=== PATIENT | female | born 1950 | race Caucasian/White ===

== ENCOUNTER 2017-10-28 01:16 | Inpatient (IN) | payer MEDICARE, OTHER ==
[~2017-10-28] VITALS: Ht 165.1 cm; Wt 68.0 kg
[~2017-10-28 01:16] MED LIST: AMLO-512 PO; CLON.2 PO; ESCI5TAB PO; RISP.5 PO
[2017-10-28 02:18] LABS: BASOPHILS % (AUTO) 0.2 % (0.0-2.0); EOSINOPHILS % (AUTO) 2.5 % (1.0-6.0); HEMATOCRIT 44.4 % (36-46); HEMOGLOBIN 15.3 g/dL (12.0-16.0); LYMPHOCYTES # (AUTO) 1.7 K/uL (1.0-4.8); LYMPHOCYTES % (AUTO) 32.2 % (22.0-44.0); MEAN CORPUSCULAR HEMOGLOBIN 31.1 pg (26.0-34.0); MEAN CORPUSCULAR HGB CONC 34.4 G/dL (31.0-37.0); MEAN CORPUSCULAR VOLUME 90 fL (80-100); MONOCYTES # (AUTO) 0.4 K/uL (0.1-1.0); MONOCYTES % (AUTO) 8.2 % (2.0-9.0); NEUTROPHILS # (AUTO) 3.1 K/uL (1.8-7.7); NEUTROPHILS % (AUTO) 56.9 % (40.0-70.0); RED BLOOD CELL COUNT(AUTO) 4.92 MIL/uL (4.00-5.20); RED CELL DISTRIBUTION WIDTH 12.6 % (11.5-14.5)
[2017-10-28 02:23] LABS: ANION GAP 9 mmol/L (8-16); CALCIUM, TOTAL 8.7 mg/dL (8.8-10.5); CARBON DIOXIDE 25 mmol/L (22-29); CHLORIDE 105 mmol/L (98-107); CREATININE 0.51 mg/dL (0.60-1.30); GLOMERULAR FILTR. RATE CALC > 60 mL/min (>60); GLUCOSE,RANDOM 110 mg/dL (70-110); POTASSIUM 3.6 mmol/L (3.5-5.1); SODIUM SERUM 139 mmol/L (136-145); UREA NITROGEN, BLOOD 17 mg/dL (7-18)
[2017-10-28 02:30] LABS: ALANINE AMINOTRANSFERASE 36 U/L (12-78); ALBUMIN 3.4 g/dL (3.4-5.0); ALKALINE PHOSPHATASE 169 U/L (46-116); ASPARTATE AMINOTRANSFERASE 48 U/L (15-37); BILIRUBIN,TOTAL 0.7 mg/dL (0.1-1.0); TOTAL PROTEIN, SERUM 6.9 g/dL (6.4-8.2)
[2017-10-28 02:34] LABS: AMPHET/METH SCREEN,URINE NEGATIVE (NEGATIVE); BARBITURATE SCREEN, URINE NEGATIVE (NEGATIVE); BENZODIAZEPINES SCREEN,URINE NEGATIVE (NEGATIVE); CANNABINOID SCREEN,URINE NEGATIVE (NEGATIVE); COCAINE SCREEN,URINE NEGATIVE (NEGATIVE); METHADONE SCREEN, URINE NEGATIVE (NEGATIVE); OPIATE SCREEN,URINE NEGATIVE (NEGATIVE); PHENCYCLIDINE SCREEN,URINE NEGATIVE (NEGATIVE)
[2017-10-28 02:45] LABS: PLATELET COUNT (AUTO) 66 K/uL (150-450)
[2017-10-28] MEDS ORDERED: ZOLPIDEM TARTRATE 10 MG TABLET PO PRN (02:45)
[2017-10-28] MEDS ORDERED: HALOPERIDOL 5 MG TABLET PO PRN (02:45)
[2017-10-28 04:38] VITALS: BP 147/104
[2017-10-28] MEDS ORDERED: INFLUENZA VIRUS VACCINE QVS 2017-18 (3YR+)/PF 60 MCG/0.5 ML SYRINGE IM ONE (04:45)
[2017-10-28 05:02] LABS: APPEARANCE,URINE CLEAR (CLEAR); BILIRUBIN,URINE NEGATIVE (NEGATIVE); GLUCOSE, URINE (UA) NEGATIVE (NEGATIVE); KETONES,URINE NEGATIVE (NEGATIVE); LEUKOCYTE ESTERASE ,URINE TRACE (NEGATIVE); NITRATE,URINE NEGATIVE (NEGATIVE); OCCULT BLOOD,URINE NEGATIVE (NEGATIVE); PH,URINE 6.5 (5.0-8.0); PROTEIN,URINE NEGATIVE (NEGATIVE); UROBILINOGEN,URINE 0.2 mg/dL (<=1.0)
[2017-10-28 05:29] LABS: BACTERIA,URINE Few /HPF (None Seen); RBC,URINE 0-2 /HPF (0-2); SQUAMOUS EPITHELIAL CELL,UR Few /LPF (None Seen)
[2017-10-28 09:27] VITALS: BP 170/110
[2017-10-28] MEDS: AmLODIPine BESYLATE 10 MG TABLET PO SCH (09:45)
[2017-10-28] MEDS: NICOTINE 7 MG/24 HOUR PATCH TD SCH (09:45)
[2017-10-28] MEDS ORDERED: IBUPROFEN 400 MG TABLET PO PRN (10:00)
[2017-10-28] MEDS: CloNIDine HCL 0.2 MG TABLET PO SCH ×2 (10:06→16:22)
[2017-10-28 10:59] VITALS: BP 129/82
[2017-10-28] MEDS: RisperiDONE 0.5 MG TABLET PO SCH ×2 (10:59→21:25)
[2017-10-28] MEDS: ESCITALOPRAM OXALATE 10 MG TABLET PO SCH (11:00)
[2017-10-28 11:59] VITALS: BP 131/86
[2017-10-28] MEDS ORDERED: MAG HYDROX/AL HYDROX/SIMETH 30 ML SUSP UDCUP PO PRN (16:00)
[2017-10-28] MEDS ORDERED: ALBUTEROL SULFATE HFA 90 MCG/PUFF 8 GM INHALER IH PRN (16:00)
[2017-10-28 16:22] VITALS: BP 110/70
[2017-10-28] MEDS: IBUPROFEN 400 MG TABLET PO PRN (16:22)
[2017-10-28 16:29] VITALS: BP 113/70
[2017-10-28] MEDS: LORazepam 1 MG TABLET PO PRN (17:57)
[2017-10-28] MEDS: ACETAMINOPHEN 325 MG TABLET PO PRN (17:57)
[2017-10-29] VITALS (8 sets, daily range): BP systolic 102–133; BP diastolic 62–87
[2017-10-29] MEDS: IBUPROFEN 400 MG TABLET PO PRN ×2 (03:40→12:37)
[2017-10-29] MEDS: RisperiDONE 0.5 MG TABLET PO SCH ×2 (08:43→20:14)
[2017-10-29] MEDS: LORazepam 1 MG TABLET PO PRN (08:43)
[2017-10-29] MEDS: NICOTINE 7 MG/24 HOUR PATCH TD SCH (08:43)
[2017-10-29] MEDS: ESCITALOPRAM OXALATE 10 MG TABLET PO SCH (08:43)
[2017-10-29] MEDS: ACETAMINOPHEN 325 MG TABLET PO PRN (08:43)
[2017-10-29] MEDS: AmLODIPine BESYLATE 10 MG TABLET PO SCH (08:43)
[2017-10-29] MEDS: CloNIDine HCL 0.2 MG TABLET PO SCH ×2 (08:43→16:06)
[2017-10-29 10:33] LABS: HEMOGLOBIN A1C 5.3 % (4.5-6.2)
[2017-10-29 10:42] LABS: THYROID STIMULATING HORMONE 1.65 uIU/mL (0.36-3.74)
[2017-10-29] MEDS: SUMAtriptan SUCCINATE 25 MG TABLET PO PRN (17:23)
[2017-10-30 02:48] VITALS: BP 147/91
[2017-10-30] MEDS: LORazepam 1 MG TABLET PO PRN ×2 (04:53→11:34)
[2017-10-30] MEDS: SUMAtriptan SUCCINATE 25 MG TABLET PO PRN ×2 (04:54→11:34)
[2017-10-30] MEDS: AmLODIPine BESYLATE 10 MG TABLET PO SCH (08:33)
[2017-10-30] MEDS: ESCITALOPRAM OXALATE 10 MG TABLET PO SCH (08:34)
[2017-10-30] MEDS: CloNIDine HCL 0.2 MG TABLET PO SCH (08:34)
[2017-10-30] MEDS: RisperiDONE 0.5 MG TABLET PO SCH (08:34)
[2017-10-30] MEDS: NICOTINE 7 MG/24 HOUR PATCH TD SCH (08:35)
[2017-10-30 08:58] VITALS: BP 126/93
[2017-10-30] MEDS ORDERED: ESCI10TA PO (10:49)
[2017-10-30] MEDS ORDERED: RISP.5 PO (10:49)
[2017-10-30] MEDS ORDERED: CLON.2 PO (10:49)
[2017-10-30] MEDS ORDERED: AMLO-512 PO (10:49)
[2017-10-30 11:42] VITALS: BP 106/70
[2017-10-30 12:36] VITALS: BP 100/69
== END 2017-10-30 14:20 | disposition home or self-care (01) | DRG 885 ==
LOC: EMS 01:17 → 3EX 03:15
DX: F33.2 Major depressive disorder, recurrent severe without psychotic features (principal); R45.851 Suicidal ideations; I11.0 Hypertensive heart disease with heart failure; I50.9 Heart failure, unspecified; F11.20 Opioid dependence, uncomplicated; J44.9 Chronic obstructive pulmonary disease, unspecified; Z91.14 Patient's other noncompliance with medication regimen; Z28.21 Immunization not carried out because of patient refusal; F17.210 Nicotine dependence, cigarettes, uncomplicated; E05.00 Thyrotoxicosis with diffuse goiter without thyrotoxic crisis or storm; F41.9 Anxiety disorder, unspecified; Z90.49 Acquired absence of other specified parts of digestive tract; G47.00 Insomnia, unspecified; Z71.51 Drug abuse counseling and surveillance of drug abuser; R74.0 Nonspecific elevation of levels of transaminase and lactic acid dehydrogenase [LDH]; Z79.899 Other long term (current) drug therapy
CPT/HCPCS: 83036; 84443; 99285; G0480

== ENCOUNTER 2017-12-10 17:38 | Emergency (ER) | payer MEDICARE, OTHER ==
[~2017-12-10] VITALS: Ht 165.1 cm; Wt 81.8 kg
[~2017-12-10 17:38] MED LIST changes: +ESCI10TA PO; -ESCI5TAB PO
[2017-12-10] MEDS ORDERED: CloNIDine HCL 0.2 MG TABLET PO ONE (20:15)
[2017-12-10 20:59] LABS: BASOPHILS % (AUTO) 0.9 % (0.0-2.0); EOSINOPHILS % (AUTO) 1.6 % (1.0-6.0); HEMATOCRIT 44.3 % (36-46); HEMOGLOBIN 15.1 g/dL (12.0-16.0); LYMPHOCYTES # (AUTO) 1.9 K/uL (1.0-4.8); LYMPHOCYTES % (AUTO) 34.2 % (22.0-44.0); MEAN CORPUSCULAR HEMOGLOBIN 30.1 pg (26.0-34.0); MEAN CORPUSCULAR HGB CONC 34.1 G/dL (31.0-37.0); MEAN CORPUSCULAR VOLUME 88 fL (80-100); MONOCYTES # (AUTO) 0.5 K/uL (0.1-1.0); MONOCYTES % (AUTO) 8.6 % (2.0-9.0); NEUTROPHILS % (AUTO) 54.7 % (40.0-70.0); PLATELET COUNT (AUTO) 114 K/uL (150-450); RED BLOOD CELL COUNT(AUTO) 5.02 MIL/uL (4.00-5.20); RED CELL DISTRIBUTION WIDTH 13.5 % (11.5-14.5)
[2017-12-10] MEDS ORDERED: KETOROLAC TROMETHAMINE 30 MG/ML VIAL IVP ONE (21:00)
[2017-12-10 21:12] LABS: PROTHROMBIN TIME 10.6 SEC (9.4-11.6)
[2017-12-10 21:26] LABS: B-TYPE NATRIURETIC PEPTIDE 63 pg/mL (0-100)
[2017-12-10 21:32] LABS: ANION GAP 9 mmol/L (8-16); CALCIUM, TOTAL 8.9 mg/dL (8.8-10.5); CARBON DIOXIDE 27 mmol/L (22-29); CHLORIDE 106 mmol/L (98-107); GLOMERULAR FILTR. RATE CALC > 60 mL/min (>60); GLUCOSE,RANDOM 93 mg/dL (70-110); POTASSIUM 4.1 mmol/L (3.5-5.1); SODIUM SERUM 142 mmol/L (136-145); UREA NITROGEN, BLOOD 22 mg/dL (7-18)
[2017-12-10 21:43] LABS: APPEARANCE,URINE CLEAR (CLEAR); BILIRUBIN,URINE NEGATIVE (NEGATIVE); GLUCOSE, URINE (UA) NEGATIVE (NEGATIVE); KETONES,URINE NEGATIVE (NEGATIVE); LEUKOCYTE ESTERASE ,URINE NEGATIVE (NEGATIVE); NITRATE,URINE NEGATIVE (NEGATIVE); OCCULT BLOOD,URINE NEGATIVE (NEGATIVE); PROTEIN,URINE NEGATIVE (NEGATIVE); UROBILINOGEN,URINE 0.2 mg/dL (<=1.0)
[2017-12-10 21:58] LABS: ALANINE AMINOTRANSFERASE 48 U/L (12-78); ALBUMIN 3.5 g/dL (3.4-5.0); ALKALINE PHOSPHATASE 180 U/L (46-116); ASPARTATE AMINOTRANSFERASE 52 U/L (15-37); BILIRUBIN,TOTAL 0.5 mg/dL (0.1-1.0); CREATINE KINASE MB 1.9 ng/mL (0-5); CREATINE KINASE, TOTAL 100 U/L (26-192); TOTAL PROTEIN, SERUM 7.1 g/dL (6.4-8.2)
[2017-12-10 22:45] VITALS: BP 142/86
== END 2017-12-10 22:49 | disposition home or self-care (01) ==
LOC: EMS 17:41
DX: R51 Headache (principal); I11.0 Hypertensive heart disease with heart failure; I50.9 Heart failure, unspecified; J44.9 Chronic obstructive pulmonary disease, unspecified; F17.210 Nicotine dependence, cigarettes, uncomplicated; F11.90 Opioid use, unspecified, uncomplicated
CPT/HCPCS: 36415; 71045; 80053; 81003; 82550; 82553; 83880; 84484; 85025; 85610; 85730; 93005; 96374; 99285; J1885

== ENCOUNTER 2018-07-19 11:47 | Inpatient (IN) | payer MEDICARE, MEDICAID ==
[~2018-07-19] VITALS: Ht 165.1 cm; Wt 71.4 kg
[2018-07-19] MEDS ORDERED: PANT40TA25 PO (11:52)
[2018-07-19] MEDS ORDERED: GABA-531 PO (11:52)
[2018-07-19] MEDS ORDERED: DULO30CA2 PO (11:52)
[2018-07-19] MEDS ORDERED: ALEN70TA48 PO (11:52)
[2018-07-19 12:51] LABS: BASOPHILS % (AUTO) 0.7 % (0.0-2.0); EOSINOPHILS % (AUTO) 0.6 % (1.0-6.0); HEMATOCRIT 50.3 % (36-46); HEMOGLOBIN 16.9 g/dL (12.0-16.0); LYMPHOCYTES # (AUTO) 1.3 K/uL (1.0-4.8); LYMPHOCYTES % (AUTO) 15.5 % (22.0-44.0); MEAN CORPUSCULAR HEMOGLOBIN 30.7 pg (26.0-34.0); MEAN CORPUSCULAR HGB CONC 33.6 G/dL (31.0-37.0); MEAN CORPUSCULAR VOLUME 91 fL (80-100); MONOCYTES # (AUTO) 0.7 K/uL (0.1-1.0); MONOCYTES % (AUTO) 8.5 % (2.0-9.0); NEUTROPHILS # (AUTO) 6.4 K/uL (1.8-7.7); NEUTROPHILS % (AUTO) 74.7 % (40.0-70.0); PLATELET COUNT (AUTO) 169 K/uL (150-450); RED BLOOD CELL COUNT(AUTO) 5.51 MIL/uL (4.00-5.20); RED CELL DISTRIBUTION WIDTH 13.3 % (11.5-14.5)
[2018-07-19 13:09] LABS: ANION GAP 11 mmol/L (8-16); CALCIUM, TOTAL 8.9 mg/dL (8.8-10.5); CARBON DIOXIDE 24 mmol/L (22-29); CHLORIDE 103 mmol/L (98-107); CREATININE 0.77 mg/dL (0.60-1.30); GLOMERULAR FILTR. RATE CALC > 60 mL/min (>60); GLUCOSE,RANDOM 111 mg/dL (70-110); POTASSIUM 3.8 mmol/L (3.5-5.1); SODIUM SERUM 138 mmol/L (136-145); UREA NITROGEN, BLOOD 12 mg/dL (7-18)
[2018-07-19 13:14] LABS: ALANINE AMINOTRANSFERASE 62 U/L (12-78); ALBUMIN 3.8 g/dL (3.4-5.0); ALKALINE PHOSPHATASE 164 U/L (46-116); ASPARTATE AMINOTRANSFERASE 71 U/L (15-37); BILIRUBIN,TOTAL 0.9 mg/dL (0.1-1.0); TOTAL PROTEIN, SERUM 8.3 g/dL (6.4-8.2)
[2018-07-19] MEDS ORDERED: HALOPERIDOL 5 MG TABLET PO PRN (14:45)
[2018-07-19 17:57] VITALS: BP 121/90
[2018-07-19] MEDS: LORazepam 2 MG TABLET PO PRN (19:05)
[2018-07-19] MEDS ORDERED: ACETAMINOPHEN 325 MG TABLET PO PRN (20:15)
[2018-07-19] MEDS ORDERED: MAGNESIUM HYDROXIDE SUSPENSION 30 ML UDCUP PO PRN (20:15)
[2018-07-19] MEDS ORDERED: CloNIDine HCL 0.1 MG TABLET PO PRN (20:15)
[2018-07-19] MEDS ORDERED: ONDANSETRON HCL 4 MG TABLET PO PRN (20:15)
[2018-07-19] MEDS ORDERED: PETROLATUM,WHITE 71 GM JELLY TP PRN (20:15)
[2018-07-19] MEDS ORDERED: NICOTINE 14 MG/24 HOUR PATCH TD PRN (20:15)
[2018-07-19] MEDS ORDERED: LOPERAMIDE HCL 2 MG CAPSULE PO PRN (20:15)
[2018-07-19] MEDS ORDERED: DOCUSATE SODIUM 100 MG CAPSULE PO PRN (20:15)
[2018-07-19] MEDS ORDERED: MAG HYDROX/AL HYDROX/SIMETH ES 30 ML SUSPENSION UDCUP PO PRN (20:15)
[2018-07-20 06:10] VITALS: BP 113/69
[2018-07-20 08:41] VITALS: BP 102/62
[2018-07-20] MEDS: NICOTINE 14 MG/24 HOUR PATCH TD SCH (10:54)
[2018-07-20 13:01] VITALS: BP 114/68
[2018-07-20] MEDS: IBUPROFEN 400 MG TABLET PO PRN (13:01)
[2018-07-20] MEDS: LORazepam 2 MG TABLET PO PRN (13:01)
[2018-07-20 16:03] VITALS: BP 105/75
[2018-07-20] MEDS: GABAPENTIN 400 MG CAPSULE PO SCH (17:16)
[2018-07-20] MEDS: DULoxetine HCL 60 MG CAPSULE PO SCH (17:16)
[2018-07-21 01:25] VITALS: BP 129/79
[2018-07-21] MEDS: ZOLPIDEM TARTRATE 10 MG TABLET PO PRN (01:30)
[2018-07-21] MEDS: IBUPROFEN 400 MG TABLET PO PRN (01:30)
[2018-07-21] MEDS: ALENDRONATE SODIUM 70 MG TABLET PO SCH (05:44)
[2018-07-21 08:39] VITALS: BP 109/60
[2018-07-21 09:01] LABS: THYROID STIMULATING HORMONE 1.45 uIU/mL (0.36-3.74)
[2018-07-21 09:08] LABS: CHOL/HDL RATIO 2.2 (3.9-5.7)
[2018-07-21 09:17] LABS: HEMOGLOBIN A1C 5.3 % (4.5-6.2)
[2018-07-21 09:25] VITALS: BP 110/72
[2018-07-21] MEDS: DULoxetine HCL 60 MG CAPSULE PO SCH ×2 (09:26→16:51)
[2018-07-21] MEDS: GABAPENTIN 400 MG CAPSULE PO SCH ×3 (09:26→16:51)
[2018-07-21] MEDS: AmLODIPine BESYLATE 10 MG TABLET PO SCH (09:26)
[2018-07-21] MEDS: PANTOPRAZOLE SODIUM 40 MG DR TABLET PO SCH (09:26)
[2018-07-21] MEDS: ARIPiprazole 5 MG TABLET PO SCH (09:26)
[2018-07-21] MEDS: NICOTINE 14 MG/24 HOUR PATCH TD SCH (09:27)
[2018-07-21] MEDS: TraMADol HCL 50 MG TABLET PO PRN (10:14)
[2018-07-21 16:22] VITALS: BP 103/68
[2018-07-22 02:26] VITALS: BP 119/73
[2018-07-22 05:22] VITALS: BP 120/82
[2018-07-22] MEDS: TraMADol HCL 50 MG TABLET PO PRN ×2 (05:25→15:43)
[2018-07-22 08:25] VITALS: BP 108/67
[2018-07-22 09:05] VITALS: BP 112/68
[2018-07-22] MEDS: ARIPiprazole 5 MG TABLET PO SCH (09:05)
[2018-07-22] MEDS: AmLODIPine BESYLATE 10 MG TABLET PO SCH (09:05)
[2018-07-22] MEDS: DULoxetine HCL 60 MG CAPSULE PO SCH ×2 (09:05→16:27)
[2018-07-22] MEDS: NICOTINE 14 MG/24 HOUR PATCH TD SCH (09:05)
[2018-07-22] MEDS: GABAPENTIN 400 MG CAPSULE PO SCH ×3 (09:05→16:27)
[2018-07-22] MEDS: PANTOPRAZOLE SODIUM 40 MG DR TABLET PO SCH (09:05)
[2018-07-22 10:01] VITALS: BP 114/75
[2018-07-22] MEDS: IBUPROFEN 400 MG TABLET PO PRN (10:01)
[2018-07-22 16:19] VITALS: BP 137/77
[2018-07-22] MEDS: ZOLPIDEM TARTRATE 10 MG TABLET PO PRN (20:45)
[2018-07-23 05:50] VITALS: BP 108/68
[2018-07-23] MEDS: TraMADol HCL 50 MG TABLET PO PRN ×2 (07:08→15:41)
[2018-07-23] MEDS: GABAPENTIN 400 MG CAPSULE PO SCH ×3 (08:55→16:14)
[2018-07-23] MEDS: ARIPiprazole 10 MG TABLET PO SCH (08:55)
[2018-07-23] MEDS: DULoxetine HCL 60 MG CAPSULE PO SCH ×2 (08:55→16:14)
[2018-07-23] MEDS: PANTOPRAZOLE SODIUM 40 MG DR TABLET PO SCH (08:55)
[2018-07-23] MEDS: NICOTINE 14 MG/24 HOUR PATCH TD SCH (08:56)
[2018-07-23 09:00] VITALS: BP 104/68
[2018-07-23] MEDS: AmLODIPine BESYLATE 10 MG TABLET PO SCH (09:00)
[2018-07-23] MEDS: ALBUTEROL SULFATE HFA 90 MCG/PUFF 8 GM INHALER IH PRN (09:05)
[2018-07-23 16:25] VITALS: BP 117/74
[2018-07-23] MEDS: ZOLPIDEM TARTRATE 10 MG TABLET PO PRN (20:57)
[2018-07-24 01:02] VITALS: BP 103/71
[2018-07-24 04:10] VITALS: BP 108/78
[2018-07-24] MEDS: IBUPROFEN 400 MG TABLET PO PRN (04:20)
[2018-07-24 08:21] VITALS: BP 110/63
[2018-07-24] MEDS: GABAPENTIN 400 MG CAPSULE PO SCH ×3 (08:46→16:29)
[2018-07-24] MEDS: AmLODIPine BESYLATE 10 MG TABLET PO SCH (08:46)
[2018-07-24] MEDS: LORazepam 2 MG TABLET PO PRN ×2 (08:46→17:18)
[2018-07-24] MEDS: ARIPiprazole 10 MG TABLET PO SCH (08:46)
[2018-07-24] MEDS: TraMADol HCL 50 MG TABLET PO PRN ×2 (08:46→16:46)
[2018-07-24] MEDS: NICOTINE 21 MG/24 HOUR PATCH TD SCH (08:47)
[2018-07-24] MEDS: PANTOPRAZOLE SODIUM 40 MG DR TABLET PO SCH (08:47)
[2018-07-24] MEDS: DULoxetine HCL 60 MG CAPSULE PO SCH ×2 (08:47→16:29)
[2018-07-24] MEDS: ALBUTEROL SULFATE HFA 90 MCG/PUFF 8 GM INHALER IH PRN (14:44)
[2018-07-24 16:03] VITALS: BP 116/67
[2018-07-24] MEDS: ZOLPIDEM TARTRATE 10 MG TABLET PO PRN (20:40)
[2018-07-24] MEDS ORDERED: BACITRACIN 28.4 GM OINTMENT TP PRN (21:00)
[2018-07-25 00:15] VITALS: BP 110/71
[2018-07-25 04:45] VITALS: BP 110/75
[2018-07-25] MEDS: TraMADol HCL 50 MG TABLET PO PRN (04:57)
[2018-07-25 08:29] VITALS: BP 106/64
[2018-07-25 08:45] VITALS: BP 113/77
[2018-07-25] MEDS: ARIPiprazole 10 MG TABLET PO SCH (08:48)
[2018-07-25] MEDS: LORazepam 2 MG TABLET PO PRN (08:48)
[2018-07-25] MEDS: NICOTINE 21 MG/24 HOUR PATCH TD SCH (08:48)
[2018-07-25] MEDS: PANTOPRAZOLE SODIUM 40 MG DR TABLET PO SCH (08:48)
[2018-07-25] MEDS: GABAPENTIN 400 MG CAPSULE PO SCH ×3 (08:48→16:42)
[2018-07-25] MEDS: AmLODIPine BESYLATE 10 MG TABLET PO SCH (08:48)
[2018-07-25] MEDS: DULoxetine HCL 60 MG CAPSULE PO SCH ×2 (08:48→16:42)
[2018-07-25] MEDS: ALBUTEROL SULFATE HFA 90 MCG/PUFF 8 GM INHALER IH PRN (08:51)
[2018-07-25 16:14] VITALS: BP 119/82
[2018-07-26] MEDS: ZOLPIDEM TARTRATE 10 MG TABLET PO PRN (03:14)
[2018-07-26] MEDS: GuaiFENesin/D-METHORPHAN [SUGAR-FREE] 200-20MG/10 ML SYRUP UDCUP PO PRN (03:14)
[2018-07-26 03:15] VITALS: BP 111/62
[2018-07-26 08:00] VITALS: BP 136/85
[2018-07-26] MEDS: ARIPiprazole 10 MG TABLET PO SCH (08:31)
[2018-07-26] MEDS: AmLODIPine BESYLATE 10 MG TABLET PO SCH (08:31)
[2018-07-26] MEDS: PANTOPRAZOLE SODIUM 40 MG DR TABLET PO SCH (08:31)
[2018-07-26] MEDS: DULoxetine HCL 60 MG CAPSULE PO SCH ×2 (08:31→16:45)
[2018-07-26] MEDS: GABAPENTIN 400 MG CAPSULE PO SCH ×3 (08:32→16:45)
[2018-07-26] MEDS: NICOTINE 21 MG/24 HOUR PATCH TD SCH (08:32)
[2018-07-26] MEDS: LORazepam 2 MG TABLET PO PRN (08:44)
[2018-07-26 12:44] VITALS: BP 124/78
[2018-07-26] MEDS: TraMADol HCL 50 MG TABLET PO PRN (12:44)
[2018-07-26 16:01] VITALS: BP 108/62
[2018-07-26 21:19] VITALS: BP 112/76
[2018-07-26] MEDS: IBUPROFEN 400 MG TABLET PO PRN (21:26)
[2018-07-27 01:31] VITALS: BP 117/72
[2018-07-27] MEDS: ZOLPIDEM TARTRATE 10 MG TABLET PO PRN (01:32)
[2018-07-27 08:32] VITALS: BP 103/70
[2018-07-27] MEDS: PANTOPRAZOLE SODIUM 40 MG DR TABLET PO SCH (08:58)
[2018-07-27] MEDS: DULoxetine HCL 60 MG CAPSULE PO SCH ×2 (08:58→16:37)
[2018-07-27] MEDS: GABAPENTIN 400 MG CAPSULE PO SCH ×3 (08:58→16:37)
[2018-07-27] MEDS: NICOTINE 21 MG/24 HOUR PATCH TD SCH (08:59)
[2018-07-27] MEDS: ARIPiprazole 10 MG TABLET PO SCH (08:59)
[2018-07-27] MEDS: AmLODIPine BESYLATE 10 MG TABLET PO SCH (09:00)
[2018-07-27 16:01] VITALS: BP 100/69
[2018-07-27 17:41] VITALS: BP 131/83
[2018-07-27] MEDS: LORazepam 2 MG TABLET PO PRN (18:05)
[2018-07-27 18:41] VITALS: BP 121/72
[2018-07-27] MEDS: TraMADol HCL 50 MG TABLET PO PRN (18:43)
[2018-07-28] MEDS: ZOLPIDEM TARTRATE 10 MG TABLET PO PRN (00:15)
[2018-07-28 01:14] VITALS: BP 117/71
[2018-07-28 03:10] VITALS: BP 112/85
[2018-07-28] MEDS: TraMADol HCL 50 MG TABLET PO PRN (03:12)
[2018-07-28] MEDS: ALENDRONATE SODIUM 70 MG TABLET PO SCH (06:41)
[2018-07-28 08:00] VITALS: BP 124/79
[2018-07-28] MEDS: ARIPiprazole 10 MG TABLET PO SCH (08:19)
[2018-07-28] MEDS: AmLODIPine BESYLATE 10 MG TABLET PO SCH (08:19)
[2018-07-28] MEDS: PANTOPRAZOLE SODIUM 40 MG DR TABLET PO SCH (08:19)
[2018-07-28] MEDS: GABAPENTIN 400 MG CAPSULE PO SCH ×3 (08:19→16:39)
[2018-07-28] MEDS: DULoxetine HCL 60 MG CAPSULE PO SCH ×2 (08:19→16:38)
[2018-07-28] MEDS: NICOTINE 21 MG/24 HOUR PATCH TD SCH (08:21)
[2018-07-28] MEDS: LORazepam 2 MG TABLET PO PRN ×3 (08:24→18:08)
[2018-07-28] MEDS: GuaiFENesin/D-METHORPHAN [SUGAR-FREE] 200-20MG/10 ML SYRUP UDCUP PO PRN ×2 (08:24→18:57)
[2018-07-28] MEDS: LEVOFLOXACIN 250 MG TABLET PO SCH (12:09)
[2018-07-28 17:24] VITALS: BP 101/68
[2018-07-28 18:09] VITALS: BP 131/82
[2018-07-29 02:35] VITALS: BP 106/69
[2018-07-29] MEDS: IBUPROFEN 400 MG TABLET PO PRN (02:41)
[2018-07-29 08:38] VITALS: BP 131/83
[2018-07-29] MEDS: ARIPiprazole 10 MG TABLET PO SCH (08:38)
[2018-07-29] MEDS: DULoxetine HCL 60 MG CAPSULE PO SCH ×2 (08:38→16:35)
[2018-07-29] MEDS: LEVOFLOXACIN 250 MG TABLET PO SCH (08:38)
[2018-07-29] MEDS: BuPROPion HCL XL 150 MG ER TABLET PO SCH (08:38)
[2018-07-29] MEDS: GABAPENTIN 400 MG CAPSULE PO SCH ×3 (08:38→16:35)
[2018-07-29] MEDS: PANTOPRAZOLE SODIUM 40 MG DR TABLET PO SCH (08:38)
[2018-07-29] MEDS: AmLODIPine BESYLATE 10 MG TABLET PO SCH (08:38)
[2018-07-29] MEDS: NICOTINE 21 MG/24 HOUR PATCH TD SCH (08:39)
[2018-07-29 08:45] LABS: BASOPHILS % (AUTO) 0.5 % (0.0-2.0); HEMATOCRIT 48.5 % (36-46); HEMOGLOBIN 16.4 g/dL (12.0-16.0); LYMPHOCYTES % (AUTO) 35.2 % (22.0-44.0); MEAN CORPUSCULAR HGB CONC 33.9 G/dL (31.0-37.0); MEAN CORPUSCULAR VOLUME 91 fL (80-100); MONOCYTES # (AUTO) 0.5 K/uL (0.1-1.0); MONOCYTES % (AUTO) 8.1 % (2.0-9.0); NEUTROPHILS # (AUTO) 3.1 K/uL (1.8-7.7); NEUTROPHILS % (AUTO) 54.2 % (40.0-70.0); PLATELET COUNT (AUTO) 122 K/uL (150-450)
[2018-07-29] MEDS: LORazepam 2 MG TABLET PO PRN ×2 (08:47→13:42)
[2018-07-29] MEDS: GuaiFENesin/D-METHORPHAN [SUGAR-FREE] 200-20MG/10 ML SYRUP UDCUP PO PRN (08:48)
[2018-07-29 16:52] VITALS: BP 102/68
[2018-07-29] MEDS ORDERED: LORazepam 1 MG TABLET PO PRN (19:30)
[2018-07-29] MEDS ORDERED: LORazepam 2 MG/ML VIAL IM PRN (20:00)
[2018-07-30 00:57] VITALS: BP 112/72
[2018-07-30] MEDS: ZOLPIDEM TARTRATE 10 MG TABLET PO PRN (01:02)
[2018-07-30] MEDS: GuaiFENesin/D-METHORPHAN [SUGAR-FREE] 200-20MG/10 ML SYRUP UDCUP PO PRN ×3 (04:21→16:41)
[2018-07-30] MEDS: LEVOFLOXACIN 250 MG TABLET PO SCH (08:08)
[2018-07-30] MEDS: ARIPiprazole 10 MG TABLET PO SCH (08:08)
[2018-07-30] MEDS: GABAPENTIN 400 MG CAPSULE PO SCH ×3 (08:08→16:38)
[2018-07-30] MEDS: PANTOPRAZOLE SODIUM 40 MG DR TABLET PO SCH (08:08)
[2018-07-30] MEDS: AmLODIPine BESYLATE 10 MG TABLET PO SCH (08:08)
[2018-07-30] MEDS: BuPROPion HCL XL 150 MG ER TABLET PO SCH (08:08)
[2018-07-30] MEDS: DULoxetine HCL 60 MG CAPSULE PO SCH ×2 (08:08→16:39)
[2018-07-30] MEDS: NICOTINE 21 MG/24 HOUR PATCH TD SCH (08:09)
[2018-07-30] MEDS: LORazepam 2 MG TABLET PO PRN ×2 (08:19→12:55)
[2018-07-30 08:37] VITALS: BP 110/74
[2018-07-30 12:08] VITALS: BP 108/68
[2018-07-30] MEDS: IBUPROFEN 400 MG TABLET PO PRN (12:08)
[2018-07-30] MEDS: BENZONATATE 100 MG CAPSULE PO PRN (12:55)
[2018-07-30 16:21] VITALS: BP 105/72
[2018-07-31 01:35] VITALS: BP 110/76
[2018-07-31] MEDS: ZOLPIDEM TARTRATE 10 MG TABLET PO PRN (01:47)
[2018-07-31] MEDS: BuPROPion HCL XL 150 MG ER TABLET PO SCH (07:50)
[2018-07-31] MEDS: GABAPENTIN 400 MG CAPSULE PO SCH ×3 (07:51→16:46)
[2018-07-31] MEDS: LEVOFLOXACIN 250 MG TABLET PO SCH (07:52)
[2018-07-31] MEDS: ARIPiprazole 10 MG TABLET PO SCH (07:52)
[2018-07-31 08:17] VITALS: BP 107/70
[2018-07-31] MEDS: DULoxetine HCL 60 MG CAPSULE PO SCH ×2 (10:05→16:34)
[2018-07-31] MEDS: NICOTINE 21 MG/24 HOUR PATCH TD SCH (10:05)
[2018-07-31] MEDS: AmLODIPine BESYLATE 10 MG TABLET PO SCH (10:05)
[2018-07-31] MEDS: PANTOPRAZOLE SODIUM 40 MG DR TABLET PO SCH (10:05)
[2018-07-31] MEDS: LORazepam 2 MG TABLET PO PRN ×2 (10:09→20:10)
[2018-07-31] MEDS: GuaiFENesin/D-METHORPHAN [SUGAR-FREE] 200-20MG/10 ML SYRUP UDCUP PO PRN ×2 (14:21→18:32)
[2018-07-31 16:10] VITALS: BP 104/70
[2018-07-31 18:33] VITALS: BP 115/80
[2018-07-31] MEDS: IBUPROFEN 400 MG TABLET PO PRN (18:33)
[2018-08-01] VITALS: BP 114/68
[2018-08-01 08:13] VITALS: BP 136/85
[2018-08-01] MEDS: DULoxetine HCL 60 MG CAPSULE PO SCH ×2 (08:13→16:47)
[2018-08-01] MEDS: ARIPiprazole 10 MG TABLET PO SCH (08:13)
[2018-08-01] MEDS: PANTOPRAZOLE SODIUM 40 MG DR TABLET PO SCH (08:13)
[2018-08-01] MEDS: LEVOFLOXACIN 250 MG TABLET PO SCH (08:14)
[2018-08-01] MEDS: BuPROPion HCL XL 150 MG ER TABLET PO SCH (08:14)
[2018-08-01] MEDS: AmLODIPine BESYLATE 10 MG TABLET PO SCH (08:14)
[2018-08-01] MEDS: GABAPENTIN 400 MG CAPSULE PO SCH ×3 (08:14→16:47)
[2018-08-01] MEDS: LORazepam 2 MG TABLET PO PRN (08:14)
[2018-08-01] MEDS: NICOTINE 21 MG/24 HOUR PATCH TD SCH (08:14)
[2018-08-01] MEDS: IBUPROFEN 400 MG TABLET PO PRN (09:31)
[2018-08-01] MEDS: BENZONATATE 100 MG CAPSULE PO PRN (14:45)
[2018-08-01 16:09] VITALS: BP 115/69
[2018-08-01] MEDS: GuaiFENesin/D-METHORPHAN [SUGAR-FREE] 200-20MG/10 ML SYRUP UDCUP PO PRN (16:50)
[2018-08-01] MEDS: ZOLPIDEM TARTRATE 10 MG TABLET PO PRN (22:17)
[2018-08-02 03:30] VITALS: BP 114/72
[2018-08-02] MEDS: LORazepam 2 MG TABLET PO PRN ×2 (03:33→08:10)
[2018-08-02 08:05] VITALS: BP 129/74
[2018-08-02] MEDS: ARIPiprazole 10 MG TABLET PO SCH (08:07)
[2018-08-02] MEDS: LEVOFLOXACIN 250 MG TABLET PO SCH (08:07)
[2018-08-02] MEDS: PANTOPRAZOLE SODIUM 40 MG DR TABLET PO SCH (08:07)
[2018-08-02] MEDS: BuPROPion HCL XL 150 MG ER TABLET PO SCH (08:07)
[2018-08-02] MEDS: DULoxetine HCL 60 MG CAPSULE PO SCH ×2 (08:08→16:38)
[2018-08-02] MEDS: NICOTINE 21 MG/24 HOUR PATCH TD SCH (08:08)
[2018-08-02] MEDS: GABAPENTIN 400 MG CAPSULE PO SCH ×3 (08:08→16:38)
[2018-08-02] MEDS: AmLODIPine BESYLATE 10 MG TABLET PO SCH (08:08)
[2018-08-02 09:34] VITALS: BP 122/70
[2018-08-02] MEDS: IBUPROFEN 400 MG TABLET PO PRN ×2 (09:34→17:32)
[2018-08-02] MEDS: GuaiFENesin/D-METHORPHAN [SUGAR-FREE] 200-20MG/10 ML SYRUP UDCUP PO PRN (12:28)
[2018-08-02 17:33] VITALS: BP 108/69
[2018-08-02 21:49] VITALS: BP 120/75
[2018-08-02] MEDS: TraMADol HCL 50 MG TABLET PO PRN (21:49)
[2018-08-03] MEDS: ZOLPIDEM TARTRATE 10 MG TABLET PO PRN (01:46)
[2018-08-03 02:10] VITALS: BP 105/72
[2018-08-03 08:00] VITALS: BP 117/70
[2018-08-03] MEDS: DULoxetine HCL 60 MG CAPSULE PO SCH ×2 (08:03→16:39)
[2018-08-03] MEDS: PANTOPRAZOLE SODIUM 40 MG DR TABLET PO SCH (08:03)
[2018-08-03] MEDS: AmLODIPine BESYLATE 10 MG TABLET PO SCH (08:03)
[2018-08-03] MEDS: ARIPiprazole 15 MG TABLET PO SCH (08:03)
[2018-08-03] MEDS: BuPROPion HCL XL 150 MG ER TABLET PO SCH (08:03)
[2018-08-03] MEDS: GABAPENTIN 400 MG CAPSULE PO SCH ×3 (08:03→16:39)
[2018-08-03] MEDS: LORazepam 2 MG TABLET PO PRN (08:04)
[2018-08-03] MEDS: NICOTINE 21 MG/24 HOUR PATCH TD SCH (08:04)
[2018-08-03] MEDS: GuaiFENesin/D-METHORPHAN [SUGAR-FREE] 200-20MG/10 ML SYRUP UDCUP PO PRN ×2 (10:06→16:48)
[2018-08-03 16:09] VITALS: BP 108/71
[2018-08-04 00:23] VITALS: BP 111/72
[2018-08-04] MEDS: TraMADol HCL 50 MG TABLET PO PRN ×2 (00:37→16:06)
[2018-08-04] MEDS: ZOLPIDEM TARTRATE 10 MG TABLET PO PRN ×2 (00:37→20:17)
[2018-08-04] MEDS: ALENDRONATE SODIUM 70 MG TABLET PO SCH (06:13)
[2018-08-04] MEDS: BuPROPion HCL XL 150 MG ER TABLET PO SCH (08:18)
[2018-08-04] MEDS: DULoxetine HCL 60 MG CAPSULE PO SCH ×2 (08:18→16:06)
[2018-08-04] MEDS: ARIPiprazole 15 MG TABLET PO SCH (08:18)
[2018-08-04] MEDS: PANTOPRAZOLE SODIUM 40 MG DR TABLET PO SCH (08:19)
[2018-08-04] MEDS: GABAPENTIN 400 MG CAPSULE PO SCH ×3 (08:19→16:06)
[2018-08-04] MEDS: LORazepam 2 MG TABLET PO PRN (08:19)
[2018-08-04] MEDS: AmLODIPine BESYLATE 10 MG TABLET PO SCH (08:19)
[2018-08-04] MEDS: NICOTINE 21 MG/24 HOUR PATCH TD SCH (08:19)
[2018-08-04 08:20] VITALS: BP 120/70
[2018-08-04] MEDS: IBUPROFEN 400 MG TABLET PO PRN (08:20)
[2018-08-04 08:23] VITALS: BP 120/70
[2018-08-04] MEDS: GuaiFENesin/D-METHORPHAN [SUGAR-FREE] 200-20MG/10 ML SYRUP UDCUP PO PRN (11:48)
[2018-08-04 16:03] VITALS: BP 116/76
[2018-08-05] MEDS: TraMADol HCL 50 MG TABLET PO PRN (03:04)
[2018-08-05 03:06] VITALS: BP 108/78
[2018-08-05] MEDS: ALBUTEROL SULFATE HFA 90 MCG/PUFF 8 GM INHALER IH PRN ×2 (06:43→12:02)
[2018-08-05 08:19] VITALS: BP 103/68
[2018-08-05 08:30] VITALS: BP 130/76
[2018-08-05] MEDS: NICOTINE 21 MG/24 HOUR PATCH TD SCH (08:31)
[2018-08-05] MEDS: DULoxetine HCL 60 MG CAPSULE PO SCH ×2 (08:31→16:34)
[2018-08-05] MEDS: PANTOPRAZOLE SODIUM 40 MG DR TABLET PO SCH (08:31)
[2018-08-05] MEDS: ARIPiprazole 15 MG TABLET PO SCH (08:31)
[2018-08-05] MEDS: GABAPENTIN 400 MG CAPSULE PO SCH ×3 (08:31→16:34)
[2018-08-05] MEDS: BuPROPion HCL XL 150 MG ER TABLET PO SCH (08:31)
[2018-08-05] MEDS: AmLODIPine BESYLATE 10 MG TABLET PO SCH (08:31)
[2018-08-05 16:04] VITALS: BP 123/67
[2018-08-05] MEDS: ZOLPIDEM TARTRATE 10 MG TABLET PO PRN (22:58)
[2018-08-06 04:55] VITALS: BP 120/73
[2018-08-06] MEDS: ALBUTEROL SULFATE HFA 90 MCG/PUFF 8 GM INHALER IH PRN ×2 (04:59→13:07)
[2018-08-06] MEDS: NICOTINE 21 MG/24 HOUR PATCH TD SCH (08:29)
[2018-08-06] MEDS: ARIPiprazole 15 MG TABLET PO SCH (08:29)
[2018-08-06] MEDS: BuPROPion HCL XL 150 MG ER TABLET PO SCH (08:30)
[2018-08-06] MEDS: GABAPENTIN 400 MG CAPSULE PO SCH ×2 (08:30→12:20)
[2018-08-06] MEDS: AmLODIPine BESYLATE 10 MG TABLET PO SCH (08:30)
[2018-08-06] MEDS: PANTOPRAZOLE SODIUM 40 MG DR TABLET PO SCH (08:30)
[2018-08-06] MEDS: DULoxetine HCL 60 MG CAPSULE PO SCH (08:49)
[2018-08-06 09:11] VITALS: BP 128/62
[2018-08-06] MEDS ORDERED: ARIP15TA2 PO (13:07)
[2018-08-06] MEDS ORDERED: GABA-533 PO (13:07)
[2018-08-06] MEDS ORDERED: BUPR-93 PO (13:07)
[2018-08-06] MEDS ORDERED: DULO60CA44 PO (13:07)
[2018-08-06] MEDS ORDERED: ALBU8HFA IH (13:07)
== END 2018-08-06 15:12 | disposition home or self-care (01) | DRG 885 ==
LOC: EMS 11:50 → B2X 15:43
PROVIDERS: ADMIT Psychiatry & Neurology Psychiatry; ATTEND Psychiatry & Neurology Psychiatry
PROC: 3E0234Z Introduction of Serum, Toxoid and Vaccine into Muscle, Percutaneous Approach (ICD-10-PCS; principal; 2018-08-03)
DX: F33.2 Major depressive disorder, recurrent severe without psychotic features (principal); I11.0 Hypertensive heart disease with heart failure; R45.851 Suicidal ideations; E03.9 Hypothyroidism, unspecified; G47.00 Insomnia, unspecified; I50.9 Heart failure, unspecified; J44.9 Chronic obstructive pulmonary disease, unspecified; K21.9 Gastro-esophageal reflux disease without esophagitis; M81.0 Age-related osteoporosis without current pathological fracture; R45.87 Impulsiveness; R45.84 Anhedonia; E05.00 Thyrotoxicosis with diffuse goiter without thyrotoxic crisis or storm; R74.0 Nonspecific elevation of levels of transaminase and lactic acid dehydrogenase [LDH]; Z23 Encounter for immunization; Z87.891 Personal history of nicotine dependence; Z91.5 Personal history of self-harm; Z79.899 Other long term (current) drug therapy
CPT/HCPCS: 83036; 84443; 87081; 90686; 99285; G0480; J3535